=== PATIENT | female | born 1950 | race Caucasian/White ===

== ENCOUNTER 2016-12-02 22:59 | Inpatient (IN) | payer MEDICARE, OTHER ==
[~2016-12-02] VITALS: Ht 162.6 cm; Wt 84.9 kg
[2016-12-02] MEDS ORDERED: ACETAMINOPHEN 325 MG TAB As Ordered ONE (23:46)
[2016-12-03 00:24] LABS: BASO % 0.5 % (0.0-1.0); EOS # 0.1 K/mm3 (0.0-0.50); EOS % 1.4 % (0.0-3.0); LARGE UNSTAINED CELL # 0.2 K/mm3 (0.0-0.4); LARGE UNSTAINED CELL % 3.7 % (0.0-4.0); LYMPH # 3.6 K/mm3 (1.5-4.5); LYMPH % 50.9 % (24.0-44.0); MEAN CORPUSCULAR HEMOGLOBIN 29.9 pg (27.0-33.0); MEAN CORPUSCULAR HGB CONC 32.5 g/dl (32.0-36.5); MEAN CORPUSCULAR VOLUME 92.1 fl (80.0-96.0); MONO # 0.2 K/mm3 (0.0-0.8); MONO % 3.2 % (0.0-5.0); NEUTROPHILS # 2.6 K/mm3 (1.8-7.7); NEUTROPHILS % 40.3 % (36.0-66.0); PLATELET COUNT, AUTOMATED 255 k/mm3 (150-450); RED CELL DISTRIBUTION WIDTH 12.5 % (11.5-14.5); WHITE BLOOD COUNT 6.6 K/mm3 (4.0-10.0)
[2016-12-03 00:44] LABS: ANION GAP 9 MEQ/L (8-16); BLOOD UREA NITROGEN 15 MG/DL (7-18); CALCIUM LEVEL 8.6 MG/DL (8.8-10.2); CARBON DIOXIDE LEVEL 23 MEQ/L (21-32); CHLORIDE LEVEL 106 MEQ/L (98-107); CREATININE FOR GFR 0.91 MG/DL (0.55-1.02); GLOMERULAR FILTRATION RATE > 60.0 (>45); GLUCOSE, FASTING 99 MG/DL (80-110); POTASSIUM SERUM 3.8 MEQ/L (3.5-5.1); SODIUM LEVEL 138 MEQ/L (136-145)
[2016-12-03] MEDS ORDERED: IPRATROPIUM 0.5MG/ALBUTEROL 2.5MG INH SOL UD 3ML (DUONEB)(J7620) NEB PRN (01:15)
[2016-12-03] MEDS ORDERED: ACETAMINOPHEN TAB 650MG DOSE (2X325MG) PO PRN (01:15)
[2016-12-03] MEDS ORDERED: ONDANSETRON 4MG/2ML VIAL (J2405) IV PRN (01:15)
[2016-12-03] MEDS ORDERED: RIZATRIPTAN MLT 10 MG TAB PO PRN (01:30)
[2016-12-03] MEDS ORDERED: OSELTAMIVIR PHOSPHATE 75 MG CAP (TAMIFLU) As Ordered ONE (01:52)
[2016-12-03] MEDS ORDERED: ZOLP5TAB PO (02:03)
[2016-12-03] MEDS ORDERED: ACYC800T PO (02:03)
[2016-12-03] MEDS ORDERED: EVIS1TAB PO (02:03)
[2016-12-03] MEDS ORDERED: BACL10TA2 PO (02:03)
[2016-12-03] MEDS ORDERED: MAXA10TA14 PO (02:03)
[2016-12-03] MEDS ORDERED: HYDR-3713 PO (02:03)
[2016-12-03] MEDS ORDERED: SYNT125T PO (02:03)
[2016-12-03] MEDS ORDERED: PROA1AER INH (02:03)
[2016-12-03] MEDS ORDERED: SIMV10TA2 PO (02:03)
[2016-12-03] MEDS ORDERED: IMBR1CAP PO (02:03)
[2016-12-03] MEDS ORDERED: MUCI600T34 PO (02:03)
[2016-12-03] MEDS ORDERED: HYDR200T3 PO (02:03)
--- NOTE | 2016-12-03 02:29 | EDDOCDS ---
Physician Documentation [facility] Name: Shanelle Vanegas Age: 66 yrs Sex: Female : 1950 Arrival Date: 12/02/2016 Time: 22:59 Bed 15 Private MD: NO PRIMARY PHYSICIAN, . Disposition: 12/03/16 01:12 Hospitalization ordered by Lam Rahman for Inpatient Admission. Preliminary diagnosis is Influenza due to other identified influenza virus with other respiratory manifestations. - Bed requested for 4 Cando. - Status is Inpatient Admission. js15 - Condition is Stable. - Problem is an acute exacerbation. - Symptoms have improved. Historical: - Allergies: SULFA (SULFONAMIDES); can't take any inflammatory medicine; - Home Meds: 1. famciclovir 500 mg Oral tab as needed 2. acyclovir 800 mg Oral tab 1 tab twice daily 3. baclofen 10 mg Oral tab 1 tab daily 4. Imbruvica 140 mg oral cap 3 caps once daily 5. hydroxychloroquine 200 mg oral tab 1 tab once daily 6. hydrocodone-acetaminophen 5-325 mg Oral tab 2 tabs every 6 hours 7. ProAir HFA 90 mcg/actuation inhalation HFAA 2 puffs every 4-6 hours 8. Evista 60 mg Oral tab 1 tab once daily 9. Maxalt-SAP TECHNICAL ARCHITECT 10 mg oral TbDL 1 tab as needed 10. simvastatin 10 mg Oral tab 1 tab once daily 11. Synthroid 125 mcg Oral tab 1 tab once daily 12. zolpidem 5 mg Oral tab 1 tab once daily - PMHx: Hypercholesterolemia; Migraine Headaches; Hypothyroidism; Leukemia; lymphoma; - PSHx: Hysterectomy; Lumpectomy- Right; Thyroid Surgery; parathyroid surgery; right foot surgery; - Social history: Smoking status: Patient states former smoker of tobacco. No barriers to communication noted, The patient speaks fluent Wolof. - Family history: Not pertinent. - : The pt / caregiver states he / she is not on anticoagulants. Home medication list is obtained from the patient. - Exposure Risk Screening:: None identified. Vital Signs: 12/02 23:04 BP 152 / 81; Pulse 103; Resp 18 S; Temp 101.1(O); Pulse Ox 98% on R/A; Weight 83.91 kg gr2 / 184.99 lbs (R); Height 5 ft. 4 in. (162.56 cm) (R); Pain 4/10; 12/03 00:32 Pulse 98 MON; Pulse Ox 97% ; js15 00:33 BP 166 / 74 (auto/); 15 00:47 Pulse 90 MON; Pulse Ox 96% ; js15 00:48 BP 192 / 74 (auto/); 15 01:02 Pulse 92 MON; Pulse Ox 96% ; js15 01:03 BP 163 / 90 (auto/); js15 01:18 BP 162 / 74 (auto/); js15 01:18 Pulse 88 MON; Pulse Ox 96% ; js15 01:37 BP 132 / 71 (auto/); 15 01:38 Pulse 96 MON; Pulse Ox 96% ; 01:47 Pulse 88 MON; Pulse Ox 97% ; 01:48 BP 129 / 76 (auto/); 01:53 Pulse 88 MON; Pulse Ox 96% ; 15 01:54 BP 123 / 63; Pulse 86 MON; Resp 20; Temp 100.4(O); Pulse Ox 97% on R/A; Pain 0/10; 01:54 BP 123 / 63 (auto/); 02:03 BP 120 / 62 (auto/); 02:03 Pulse 84 MON; Pulse Ox 96% ; 02:18 BP 130 / 67 (auto/); 02:19 Pulse 86 MON; Pulse Ox 96% ; js15 12/02 23:04 Body Mass Index 31.75 (83.91 kg, 162.56 cm) gr2 MDM: 12/02 23:38 -Blood Culture (Adults Only), peripheral from different site, or from device/port/PICC mm11 etc. if present ordered. 23:38 Director Patient/Pulse Ox/q 15 min VS ordered. mm11 23:38 IV Saline Lock ordered. mm11 23:38 Rhythm Strip to chart ordered. mm11 23:38 Acetaminophen Tablet 650 mg PO once ordered. mm11 23:38 NS 0.9% 1000 ml IV at bolus once ordered. mm11 23:39 Basic Metabolic Profile Ordered. EDMS 23:39 CBC with Diff Ordered. EDMS 23:39 Lactic Acid (Cm tube on ice) Ordered. EDMS 23:39 -Blood Culture Ordered. EDMS 23:39 -Influenza A&B Rapid Antigen - Nose Ordered. EDMS 23:40 Chest, 2 View (pa\E\lat) Ordered. EDMS 23:40 ECG WITH READING ER PHYS+CARDIAG ordered. EDMS 23:40 -Blood Culture (Adults Only), peripheral from different site, or from device/port/PICC ml3 etc. if present complete. 23:41 BLOOD CULTURES Ordered. EDMS 02/18 00:42 CBC with Diff Reviewed. mm11 00:54 Basic Metabolic Profile Reviewed. mm11 00:54 -Influenza A&B Rapid Antigen - Nose Reviewed. mm11 00:54 Lactic Acid (Cm tube on ice) Reviewed. mm11 00:57 Oseltamivir 75 mg PO once ordered. mm11 01:12 BED REQUEST+ADM ordered. EDMS 01:13 Admission / Observation Status ordered. EDMS 01:13 REGULAR DIET ordered. EDMS 01:41 Financial registration complete. hs2 02:10 [facility] Payment Agreement was scanned into [employer] and attached to record. [facility] Administered Medications: 00:17 Drug: Acetaminophen 650 mg [acetaminophen 325 mg tablet (2 tabs)] Route: PO; js15 01:57 Follow up: Response: Temperature is decreased js15 00:17 Drug: NS 0.9% 1000 ml [sodium chloride 0.9 % intravenous solution] Route: IV; Rate: js15 bolus; Site: left hand; 01:55 Drug: Oseltamivir 75 mg [oseltamivir 75 mg capsule (1 caps)] Route: PO; js15 Signatures: Dispatcher [employer] Allyson Rondon RN RN [facility] Elizabeth Johnston, [employer] ml3 Bhupinder Joshi, DO mm11 Penelope Valdivia [facility] Naya MejiaRN RN js15 Denisa Harry, Reg Reg hs2 The chart was reviewed and I authenticate all verbal orders and agree with the evaluation and treatment provided.Attachments: 02:10 [facility] Payment Agreement [facility] MTDD
--- NOTE | 2016-12-03 02:29 | EDDOCDS ---
Nurse's Notes [facility] Name: Shanelle Vanegas Age: 66 yrs Sex: Female : 1950 Arrival Date: 12/02/2016 Time: 22:59 Bed 15 Private MD: NO PRIMARY PHYSICIAN, . Diagnosis: Influenza due to other identified influenza virus with other respiratory manifestations Presentation: 12/02 23:13 Presenting complaint: Patient states: Sick for last 5 days--coughing, chills, mcp congestion, short of breath and weak going up stairs, fever last night. Is undergoing chemo treatments now for leukemia and lymphoma. Adult Sepsis Screening: The patient does not have new or worsening altered mentation. Patient's respiratory rate is less than 22. Systolic blood pressure is greater than 100. Patient has a qSOFA score of 0- Negative Sepsis Screen. Suicide/Homicide risk assessment- the patient denies having any suicidal and/or homicidal ideations and does not present with any other emotional, behavioral or mental health complaints. Status: Patient is not a nursing services manager or dependent. Transition of care: patient was not received from another setting of care. 23:13 Acuity: LANDON Level 3 [facility] 23:13 Method Of Arrival: Walkin/Carried/Asstd [facility] Triage Assessment: 23:21 General: Appears ill, Behavior is cooperative. Pain: Denies pain. Neurological: No mcp deficits noted. EENT: Reports nasal congestion. Respiratory: Airway is patent Respiratory effort is even, labored, Reports shortness of breath at rest cough that is persistent. Derm: Skin is pink, warm & dry. Historical: - Allergies: SULFA (SULFONAMIDES); can't take any inflammatory medicine; - Home Meds: 1. famciclovir 500 mg Oral tab as needed 2. acyclovir 800 mg Oral tab 1 tab twice daily 3. baclofen 10 mg Oral tab 1 tab daily 4. Imbruvica 140 mg oral cap 3 caps once daily 5. hydroxychloroquine 200 mg oral tab 1 tab once daily 6. hydrocodone-acetaminophen 5-325 mg Oral tab 2 tabs every 6 hours 7. ProAir HFA 90 mcg/actuation inhalation HFAA 2 puffs every 4-6 hours 8. Evista 60 mg Oral tab 1 tab once daily 9. Maxalt-YARN TESTER 10 mg oral TbDL 1 tab as needed 10. simvastatin 10 mg Oral tab 1 tab once daily 11. Synthroid 125 mcg Oral tab 1 tab once daily 12. zolpidem 5 mg Oral tab 1 tab once daily - PMHx: Hypercholesterolemia; Migraine Headaches; Hypothyroidism; Leukemia; lymphoma; - PSHx: Hysterectomy; Lumpectomy- Right; Thyroid Surgery; parathyroid surgery; right foot surgery; - Social history: Smoking status: Patient states former smoker of tobacco. No barriers to communication noted, The patient speaks fluent Mauritanian. - Family history: Not pertinent. - : The pt / caregiver states he / she is not on anticoagulants. Home medication list is obtained from the patient. - Exposure Risk Screening:: None identified. Screenin/18 00:30 Screening information is obtained from the patient. Fall risk: No risks identified. js15 Assistance ADL's: requires no assistance with activities of daily living. Abuse/DV Screen: The patient / caregiver reports he/she is: not in a situation that causes fear, pain or injury. Nutritional screening: No deficits noted. Advance Directives: There is no active DNR order. home support is adequate. Assessment: 00:30 General: Appears in no apparent distress, uncomfortable, Behavior is appropriate for js15 age, cooperative. Pain: Denies pain. Neurological: Level of Consciousness is awake, alert, obeys commands, Oriented to person, place, time. Cardiovascular: Capillary refill < 3 seconds Heart tones S1 S2 present Rhythm is regular. Respiratory: Airway is patent Respiratory effort is even, unlabored, Respiratory pattern is regular, symmetrical, Breath sounds with wheezes bilaterally. Derm: Skin is pink, warm & dry. 01:30 Reassessment: Patient appears in no apparent distress at this time. Pt resting on js15 stretcher, respirations even and unlabored; skin pink, warm, dry. 02:24 Reassessment: Patient appears in no apparent distress at this time. Patient denies pain js15 at this time. Pt awake and alert on stretcher, using cell phone; respirations even and unlabored with intermittent cough; skin pink, warm, dry. Vital Signs: 12/02 23:04 BP 152 / 81; Pulse 103; Resp 18 S; Temp 101.1(O); Pulse Ox 98% on R/A; Weight 83.91 kg gr2 (R); Height 5 ft. 4 in. (162.56 cm) (R); Pain 4/10; 18 00:32 Pulse 98 MON; Pulse Ox 97% ; js15 00:33 BP 166 / 74 (auto/); js15 00:47 Pulse 90 MON; Pulse Ox 96% ; js15 00:48 BP 192 / 74 (auto/); js15 01:02 Pulse 92 MON; Pulse Ox 96% ; js15 01:03 BP 163 / 90 (auto/); js15 01:18 BP 162 / 74 (auto/); js15 01:18 Pulse 88 MON; Pulse Ox 96% ; js15 01:37 BP 132 / 71 (auto/); js15 01:38 Pulse 96 MON; Pulse Ox 96% ; js15 01:47 Pulse 88 MON; Pulse Ox 97% ; js15 01:48 BP 129 / 76 (auto/); js15 01:53 Pulse 88 MON; Pulse Ox 96% ; js15 01:54 BP 123 / 63; Pulse 86 MON; Resp 20; Temp 100.4(O); Pulse Ox 97% on R/A; Pain 0/10; js15 01:54 BP 123 / 63 (auto/); js15 02:03 BP 120 / 62 (auto/); js15 02:03 Pulse 84 MON; Pulse Ox 96% ; js15 02:18 BP 130 / 67 (auto/); js15 02:19 Pulse 86 MON; Pulse Ox 96% ; js15 12/02 23:04 Body Mass Index 31.75 (83.91 kg, 162.56 cm) gr2 Vitals: 12/02 23:04 Log In Time: December 02, 2016 at 23:04. gr2 ED Course: 23:03 Patient visited by Lianna Jay. gr2 23:03 Patient moved to Waiting gr2 23:04 NO PRIMARY PHYSICIAN, . is Private Physician. gr2 23:06 Patient visited by Lianna Jay. gr2 23:06 Patient moved to Pre RCE gr2 23:14 Triage Initiated mcp 23:22 Patient visited by Allyson Basilio RN. [facility] 23:23 Patient moved to 15 mcp 23:24 Bhupinder Joshi DO is Attending Physician. mm11 23:24 Patient visited by Bhupinder Joshi DO. mm11 23:37 Patient visited by Bhupinder Joshi DO. mm11 12/03 00:15 Inserted saline lock: 20 gauge in left hand The patient tolerated the procedure well. 00:17 Lactic Acid (Cm tube on ice) Sent. 00:17 -Influenza A&B Rapid Antigen - Nose Sent. 00:17 -Blood Culture Sent. 00:17 Basic Metabolic Profile Sent. 00:17 CBC with Diff Sent. 00:18 Patient visited by Naya Mejia RN. 00:30 The patient / caregiver is instructed regarding the plan of care and ED course. 00:39 Patient visited by Babak Dominguez PCA. v 00:39 EKG done. (by ED staff). Reviewed by Bhupinder Joshi DO. v 01:09 BLOOD CULTURES Sent. 01:12 Lam Rahman DO is Hospitalizing Provider. mm11 01:53 No procedures done that require assistance. 02:10 [facility] Payment Agreement was scanned into [employer] and attached to record. [facility] Administered Medications: 00:17 Drug: Acetaminophen 650 mg [acetaminophen 325 mg tablet (2 tabs)] Route: PO; 15 01:57 Follow up: Response: Temperature is decreased 00:17 Drug: NS 0.9% 1000 ml [sodium chloride 0.9 % intravenous solution] Route: IV; Rate: 15 bolus; Site: left hand; 01:55 Drug: Oseltamivir 75 mg [oseltamivir 75 mg capsule (1 caps)] Route: PO; 15 Order Results: Lab Order: Basic Metabolic Profile; SPEC'M 12/03/16 00:13 Test: GLUCOSE, FASTING; Value: 99; Range: 80-110; Units: MG/DL; Status: F Test: BLOOD UREA NITROGEN; Value: 15; Range: 7-18; Units: MG/DL; Status: F Test: CREATININE FOR GFR; Value: 0.91; Range: 0.55-1.02; Units: MG/DL; Status: F Test: GLOMERULAR FILTRATION RATE; Value: > 60.0; Range: >45; Status: F Test: SODIUM LEVEL; Value: 138; Range: 136-145; Units: MEQ/L; Status: F Test: POTASSIUM SERUM; Value: 3.8; Range: 3.5-5.1; Units: MEQ/L; Status: F Test: CHLORIDE LEVEL; Value: 106; Range: 98-107; Units: MEQ/L; Status: F Test: CARBON DIOXIDE LEVEL; Value: 23; Range: 21-32; Units: MEQ/L; Status: F Test: ANION GAP; Value: 9; Range: 8-16; Units: MEQ/L; Status: F Test: CALCIUM LEVEL; Value: 8.6; Range: 8.8-10.2; Abnormal: Below low normal; Units: MG/DL; Status: F Test Note: ; Units are mL/min/1.73 m2 Chronic Kidney Disease Staging per NKF: Stage I & II GFR >=60 Normal to Mildly Decreased Stage III GFR 30-59 Moderately Decreased Stage IV GFR 15-29 Severely Decreased Stage V GFR <15 Very Little GFR Left ESRD GFR <15 on DIVING COACH Lab Order: CBC with Diff; SPEC'M 12/03/16 00:13 Test: WHITE BLOOD COUNT; Value: 6.6; Range: 4.0-10.0; Units: K/mm3; Status: F Test: RED BLOOD COUNT; Value: 3.91; Range: 4.00-5.40; Abnormal: Below low normal; Units: M/mm3; Status: F Test: HEMOGLOBIN; Value: 11.7; Range: 12.0-16.0; Abnormal: Below low normal; Units: g/dl; Status: F Test: HEMATOCRIT; Value: 36.0; Range: 36.0-47.0; Units: %; Status: F Test: MEAN CORPUSCULAR VOLUME; Value: 92.1; Range: 80.0-96.0; Units: fl; Status: F Test: MEAN CORPUSCULAR HEMOGLOBIN; Value: 29.9; Range: 27.0-33.0; Units: pg; Status: F Test: MEAN CORPUSCULAR HGB CONC; Value: 32.5; Range: 32.0-36.5; Units: g/dl; Status: F Test: RED CELL DISTRIBUTION WIDTH; Value: 12.5; Range: 11.5-14.5; Units: %; Status: F Test: PLATELET COUNT, AUTOMATED; Value: 255; Range: 150-450; Units: k/mm3; Status: F Test: NEUTROPHILS %; Value: 40.3; Range: 36.0-66.0; Units: %; Status: F Test: LYMPH %; Value: 50.9; Range: 24.0-44.0; Abnormal: Above high normal; Units: %; Status: F Test: MONO %; Value: 3.2; Range: 0.0-5.0; Units: %; Status: F Test: EOS %; Value: 1.4; Range: 0.0-3.0; Units: %; Status: F Test: BASO %; Value: 0.5; Range: 0.0-1.0; Units: %; Status: F Test: LARGE UNSTAINED CELL %; Value: 3.7; Range: 0.0-4.0; Units: %; Status: F Test: NEUTROPHILS #; Value: 2.6; Range: 1.8-7.7; Units: K/mm3; Status: F Test: LYMPH #; Value: 3.6; Range: 1.5-4.5; Units: K/mm3; Status: F Test: MONO #; Value: 0.2; Range: 0.0-0.8; Units: K/mm3; Status: F Test: EOS #; Value: 0.1; Range: 0.0-0.50; Units: K/mm3; Status: F Test: BASO #; Value: 0.0; Range: 0.0-0.2; Units: K/mm3; Status: F Test: LARGE UNSTAINED CELL #; Value: 0.2; Range: 0.0-0.4; Units: K/mm3; Status: F Lab Order: -Influenza A&B Rapid Antigen - Nose; SPEC'M 12/03/16 00:14 Test: INFLUENZA A RAPID SCR by ICA; Value: INFLUENZA A RESULTS NEGATIVE; Status: F Test: INFLUENZA A RAPID SCR by ICA; Value: Comments:; Status: F Test: INFLUENZA B RAPID SCR by ICA; Value: INFLUENZA B RESULTS POSITIVE; Abnormal: Abnormal; Status: F Test Note: ; The Influenza test is a direct rapid immunoassay for the qualitative detection of Influenza viral antigen. Cell culture (Viral Culture) testing should be considered to confirm NEGATIVE results and to assist in detecting other viruses that can provide similar clinical symptoms. Please contact the lab within 24 hours ([phone]) if confirmatory testing is desired. Lab Order: Lactic Acid (Cm tube on ice); SPEC'M 12/03/16 00:14 Test: LACTIC ACID SEPSIS PROTOCOL; Value: 1.0; Range: 0.4-2.0; Units: MMOL/L; Status: F Outcome: 01:12 Decision to Hospitalize by Provider. mm11 01:53 Discharge Assessment: Patient awake, alert and oriented x 3. No cognitive and/or [facility] functional deficits noted. Patient verbalized understanding of disposition instructions. patient administered narcotics - no. The following High Risk Discharge criteria are identified: None. Admitted to Med/Surg accompanied by tech, via stretcher, with chart, Other pt wearing mask during transport. Condition: unchanged. No special radiology studies were completed. Property :Personal belongings accompany Pt. 02:28 Patient left the ED. [facility] Signatures: Allyson Basilio, RN [facility] Bhupinder Joshi DO DO mm11 Lianna Jay gr2 Penelope Valdivia Julia, RN RN 15 Babak Dominguez, AUDITING CONTROL CLERK AUDITING CONTROL CLERK jmv Corrections: (The following items were deleted from the chart) 02:27 01:53 The following High Risk Discharge criteria are identified: None. Admitted to [facility] Med/Surg accompanied by tech, via stretcher, with chart, js15 [facility]
[2016-12-03 02:40] VITALS: BP 136/69
[2016-12-03] MEDS: SIMVASTATIN 10 MG TAB PO SCH ×2 (03:32→21:26)
[2016-12-03] MEDS: BACLOFEN 10 MG TAB PO SCH ×2 (03:32→21:26)
[2016-12-03] MEDS ORDERED: methylPREDNISolone INJ 125 MG/2 ML VIAL (J2930) IV SCH (04:00)
[2016-12-03] MEDS: LEVOTHYROXINE 0.125 MG TAB (125 MCG) PO SCH (05:40)
[2016-12-03 06:00] VITALS: BP 119/65
--- NOTE | 2016-12-03 07:03 | HPE ---
DATE OF ADMISSION: 12/03/2016 PRIMARY CARE PROVIDER: In [place]. ONCOLGIST: In [place]. CHIEF COMPLAINT: Myalgia, cough and chills. HISTORY OF PRESENT ILLNESS: Ms. Vanegas is a pleasant 66-year-old female who has traveled here recently from [place] to visit her family. Her mother is currently hospitalized due to generalized weakness and decubitus ulcers. At any rate, she has had 4-5 days of coughing, chills, subjective fevers, chest congestion, shortness of breath, and dyspnea on exertion. She is currently on chemo for her underlying lymphoma and chronic lymphocytic leukemia (CLL). She denies any sick contacts. However, she did test positive for influenza B by the ER physician. Due to her generalized weakness and symptoms, as well as her chemotherapy we did have a discussion regarding observing her overnight and starting her on appropriate medications. She does not appear to be acutely hypoxic, however, she does have some generalized weakness, myalgia and elevated temperature. PAST MEDICAL HISTORY: 1. CLL. 2. Lymphoma. 3. Hyperlipidemia. 4. Hypothyroidism. 5. Migraines. PAST SURGICAL HISTORY: 1. Hysterectomy. 2. Lumpectomy right breast. 3. Thyroid surgery. 4. Parathyroid surgery. 5. Right foot surgery. SOCIAL HISTORY: The patient denies tobacco use or alcohol use. She denies any sick contacts, but recently traveled here from [place] approximately a week ago. FAMILY HISTORY: Noncontributory. ALLERGIES: - SULFA DRUGS HOME MEDICATIONS: - famciclovir 500 mg as needed - acyclovir 800 mg twice a day - baclofen 10 mg daily - Imbruvica 140 mg - hydroxychloroquine 200 mg daily - Lortab 5/325 1 tablet every 6 hours - ProAir HFA inhaler as directed - Evista 60 mg daily - Maxalt-BASTING MACHINE OPERATOR 10 mg tablet as directed - simvastatin 10 mg daily - Synthroid 125 mcg daily - Zolpidem 5 mg once daily REVIEW OF SYSTEMS: Constitutional: She has had subjective fevers, chills. No rigors, but positive myalgias and generalized weakness for the last 4-5 days. HEENT: She denies headache, lightheaded, dizziness. No blurry vision, double vision or tinnitus. No difficulty with speech or swallowing. Pulmonary: Intermittent productive sputum which is clear to yellowish. No hemoptysis. She has had increased wheeze. She does have an underlying history of asthma. Cardiovascular: No substernal chest pain. No paroxysmal nocturnal dyspnea (PND), orthopnea or lower extremity edema. GI: No nausea, vomiting, or diarrhea. Bowel movements regular. She denies any hematochezia or melena. : No dysuria, frequency or hematuria. Musculoskeletal: Positive for myalgia vaguely in the upper and lower extremities, but no bone, muscle or joint pain otherwise. Neurologic: No for paresthesias or paralysis. She does have a history of migraines. Lymphatics: No lumps, bumps, swelling in the neck, axilla or groin, but she does have a positive history of lymphoma she is actively being treated for. Endocrine: Negative for diabetes. Positive for thyroid disorder. Hematology: No bleeding or bruising disorder. No prior history of venous thromboembolism. Oncology: Positive for lymphoma and chronic lymphocytic leukemia. Psychiatric: Negative for depression. No suicidal ideation. No audiovisual hallucinations. 10-point review of systems completed, pertinent positives are listed. PHYSICAL EXAMINATION: Temperature is 101.1, respiratory rate 18, pulse 103, blood pressure (BP) 152/81, SPO2 is 98% on room air. General: The patient appears to be in no acute distress. She is alert and oriented, pleasant talk to. HEENT: Head is atraumatic, normocephalic. She does have some clear rhinorrhea. Throat clear. Neck: Supple. Lungs: Intermittent expiratory wheeze throughout all lung maldonado. Heart: Regular rate and rhythm. Abdomen: Soft. Extremities: No edema or calf tenderness. Cranial nerves II-XII grossly intact. LABORATORY DATA: White count 6.6, hemoglobin 11.7, platelets 255,000. Sodium 138, potassium 3.8, chloride 106, bicarb 23, anion gap 9, BUN is 15, creatinine 0.91, glucose is 99, lactic acid 1.0, calcium 8.6. Influenza A and B - influenza A is negative and influenza B is positive. Blood cultures pending. Chest x-ray with clear lung maldonado. No acute cardiopulmonary processes noted; however, on closer inspection she may have a little bit of a patchy infiltrate noted in the right lower lung field towards the base of the lung. IMPRESSION: Ms. Vanegas is a pleasant 66-year-old female visiting here from [place] with history of CLL and lymphoma with significant respiratory issues, generalized weakness and myalgia, testing positive for influenza B. Due to her underlying history of cancer and on current chemotherapy medications, I would like to observe her overnight and start her on appropriate medications and continue with some supportive measures. PROBLEM LIST: 1. Community-acquired pneumonia, likely secondary to influenza. 2. Influenza B. 3. CLL. 4. Lymphoma. 5. Asthma. 6. Hyperlipidemia. 7. Hypothyroidism. 8. History of migraines. 9. Chronic back pain. PLAN: The patient will be admitted under observation per Dr. Kate. Will start her on Tamiflu. Will cover her as well for secondary bacterial infection and start her on by mouth Zithromax. She appears to be doing well otherwise. Will repeat labs in the morning. She did receive a 1000 liters of normal saline. Her pressure has been fine. She does not demonstrate any signs of lactic acidosis or sepsis currently. Would like to watch her through the night since she is on ongoing chemotherapy for her lymphoma and CLL. Will continue her home medications. Deep vein thrombosis (DVT) prophylaxis with Lovenox. DISPOSITION: Anticipate home discharge in the next 24-48 hours.
[2016-12-03] MEDS: IPRATROPIUM 0.5MG/ALBUTEROL 2.5MG INH SOL UD 3ML (DUONEB)(J7620) NEB SCH ×2 (07:36→15:46)
--- NOTE | 2016-12-03 08:14 | REP ---
Clinical: Cough. Technique: PA and lateral. Comparison: 07/26/2011. Findings: Mediastinum and cardiac silhouette are normal. Right basilar infiltrate/atelectasis cannot be excluded. No effusion. No pneumothorax. Skeletal structures intact. Impression: Cannot exclude trace right basilar atelectasis. Signed by Marino Ledbetter MD 12/03/2016 08:06 A
[2016-12-03] MEDS: RALOXIFENE HCL (EVISTA) 60 MG TAB PO SCH (09:00)
[2016-12-03] MEDS: DOCUSATE SODIUM 100 MG CAP PO SCH ×2 (09:00→21:26)
[2016-12-03] MEDS: OSELTAMIVIR PHOSPHATE 75 MG CAP (TAMIFLU) PO SCH ×2 (09:00→21:48)
[2016-12-03] MEDS: IMBRUVICA 140 MG PO SCH (09:01)
[2016-12-03] MEDS: ENOXAPARIN 40 MG/0.4 ML SYRINGE (J1650) SC SCH (09:01)
[2016-12-03] MEDS: AZITHROMYCIN 250 MG TAB PO SCH (09:01)
[2016-12-03] MEDS: HYDROXYCHLOROQUINE 200 MG TAB PO SCH ×2 (10:53→21:26)
[2016-12-03] MEDS: NORCO, ANEXSIA 5/325MG TABLET (HYDROcodone/ACETAMINOPHEN) PO PRN ×3 (10:54→21:49)
[2016-12-03 14:00] VITALS: BP 139/79
--- NOTE | 2016-12-03 19:38 | ECGEPIP ---
Stationary ECG Study [facility] - ED Test Date: 2016-12-03 Pat Name: JENNIFER MOLINA Department: Room: [place] [address] Gender: F State Manager: dave : 1950 Requested By: SARAH Light Order Number: [id number] Reading MD: Samira Lubin Measurements Intervals [place] Rate: 97 P: 40 SC: 170 QRS: 24 QRSD: 88 T: 66 QT: 312 QTc: 397 Interpretive Statements SINUS RHYTHM WITH FREQUENT VENTRICULAR PREMATURE COMPLEXES NONSPECIFIC T-WAVE ABNORMALITY ABNORMAL RHYTHM ECG NO PRIOR FOR COMPARISON Electronically Signed On 12-03-2016 19:37:30 EST by Samira Lubin
[2016-12-03] MEDS: predniSONE 20 MG TAB PO SCH (21:26)
[2016-12-03] MEDS: zolPIDEM TARTRATE 5 MG TAB PO SCH (21:48)
[2016-12-03 22:00] VITALS: BP 125/64
[2016-12-04] MEDS: IPRATROPIUM 0.5MG/ALBUTEROL 2.5MG INH SOL UD 3ML (DUONEB)(J7620) NEB SCH ×4 (00:18→23:49)
[2016-12-04 06:00] VITALS: BP 103/63
[2016-12-04 06:02] LABS: MEAN CORPUSCULAR HEMOGLOBIN 30.2 pg (27.0-33.0); MEAN CORPUSCULAR HGB CONC 32.4 g/dl (32.0-36.5); MEAN CORPUSCULAR VOLUME 93.3 fl (80.0-96.0); RED CELL DISTRIBUTION WIDTH 12.6 % (11.5-14.5); WHITE BLOOD COUNT 9.4 K/mm3 (4.0-10.0)
[2016-12-04 06:18] LABS: ANION GAP 8 MEQ/L (8-16); BLOOD UREA NITROGEN 16 MG/DL (7-18); CALCIUM LEVEL 9.3 MG/DL (8.8-10.2); CARBON DIOXIDE LEVEL 25 MEQ/L (21-32); CHLORIDE LEVEL 107 MEQ/L (98-107); CREATININE FOR GFR 0.81 MG/DL (0.55-1.02); GLOMERULAR FILTRATION RATE > 60.0 (>45); GLUCOSE, FASTING 120 MG/DL (80-110); POTASSIUM SERUM 4.6 MEQ/L (3.5-5.1); SODIUM LEVEL 140 MEQ/L (136-145)
[2016-12-04] MEDS: LEVOTHYROXINE 0.125 MG TAB (125 MCG) PO SCH (06:21)
[2016-12-04] MEDS: CALCIUM CARBONATE 500 MG CHEW U/D PO PRN ×2 (06:22→20:56)
[2016-12-04] MEDS: ENOXAPARIN 40 MG/0.4 ML SYRINGE (J1650) SC SCH (09:00)
[2016-12-04] MEDS: IMBRUVICA 140 MG PO SCH (09:03)
[2016-12-04] MEDS: OSELTAMIVIR PHOSPHATE 75 MG CAP (TAMIFLU) PO SCH ×2 (09:04→20:57)
[2016-12-04] MEDS: AZITHROMYCIN 250 MG TAB PO SCH (09:04)
[2016-12-04] MEDS: predniSONE 20 MG TAB PO SCH (09:04)
[2016-12-04] MEDS: HYDROXYCHLOROQUINE 200 MG TAB PO SCH ×2 (09:04→21:00)
[2016-12-04] MEDS: DOCUSATE SODIUM 100 MG CAP PO SCH ×2 (09:04→20:57)
[2016-12-04] MEDS: NORCO, ANEXSIA 5/325MG TABLET (HYDROcodone/ACETAMINOPHEN) PO PRN ×2 (09:05→18:55)
[2016-12-04] MEDS: RALOXIFENE HCL (EVISTA) 60 MG TAB PO SCH (09:30)
--- NOTE | 2016-12-04 10:58 | IPN ---
DATE: 12/03/2016 The patient is feeling better this morning. She has no complaints of chest pain. She is still short of breath and having cough. Temperature is 97.4, pulse 77, respiratory rate 18, blood pressure 119/65, 94% on room air. Input and output notable for a negative fluid balance of -985. She is awake and appropriately interactive, pleasantly conversant. Breathing is symmetrical. No accessory muscle use. Speaking in complete sentences. Occasional polyphonic wheeze. Heart is distant sounding. Normal S1, S2. Abdomen is soft, doughy, nontender. No significant lower extremity edema. LABORATORY DATA: White count from this morning is 6.6, hemoglobin 11.7. Lactic acid was 1. ASSESSMENT: This is a 66-year-old with influenza B and chronic lymphocytic leukemia (CLL). PLAN: 1. The patient is being treated for community-acquired pneumonia thought to be secondary to influenza and is on Tamiflu. She was also started on Zithromax for atypical-type pneumonia. 2. The patient has chronic lymphocytic leukemia. She is continued on her Plaquenil and her Imbruvica. 3. The patient has reactive airway disease. She has been given steroids, the dose of which can probably be decreased at this point. Hopefully, we will be able to discharge her tomorrow.
--- NOTE | 2016-12-04 11:05 | REP ---
Clinical: Fever and chills . Comparison: 12/02/2016 . Technique: PA and lateral. Findings: The mediastinum and cardiac silhouette are normal. The lung maldonado are clear and without acute consolidation, effusion, or pneumothorax. The skeletal structures are intact and normal. Impression: 1. No acute cardiopulmonary process. Signed by Marino Ledbetter MD 12/04/2016 10:56 A
[2016-12-04] MEDS: cefTRIAXone SOD 2 GM in D5W MINI-BAG PLUS 50 ML IV SCH (11:26)
[2016-12-04 14:00] VITALS: BP 121/65
[2016-12-04] MEDS: ONDANSETRON 4 MG ORAL DISINTEGRATING TAB (S0181) SL PRN (15:46)
[2016-12-04] MEDS: SIMVASTATIN 10 MG TAB PO SCH (20:57)
[2016-12-04 22:00] VITALS: BP 117/61
[2016-12-05] MEDS: BACLOFEN 10 MG TAB PO SCH ×2 (00:03→20:15)
[2016-12-05] MEDS: zolPIDEM TARTRATE 5 MG TAB PO SCH ×2 (00:03→20:16)
[2016-12-05] MEDS: CALCIUM CARBONATE 500 MG CHEW U/D PO PRN ×3 (00:58→20:24)
--- NOTE | 2016-12-05 03:29 | EDDOCDS ---
Physician Documentation [facility] Name: Shanelle Vanegas Age: 66 yrs Sex: Female : 1950 Arrival Date: 12/02/2016 Time: 22:59 Bed 15 Private MD: NO PRIMARY PHYSICIAN, . Disposition: 12/03/16 01:12 Hospitalization ordered by Lam Rahman for Inpatient Admission. Preliminary diagnosis is Influenza due to other identified influenza virus with other respiratory manifestations. - Bed requested for 4 [place]. - Status is Inpatient Admission. js15 - Condition is Stable. - Problem is an acute exacerbation. - Symptoms have improved. Historical: - Allergies: SULFA (SULFONAMIDES); can't take any inflammatory medicine; - Home Meds: 1. famciclovir 500 mg Oral tab as needed 2. acyclovir 800 mg Oral tab 1 tab twice daily 3. baclofen 10 mg Oral tab 1 tab daily 4. Imbruvica 140 mg oral cap 3 caps once daily 5. hydroxychloroquine 200 mg oral tab 1 tab once daily 6. hydrocodone-acetaminophen 5-325 mg Oral tab 2 tabs every 6 hours 7. ProAir HFA 90 mcg/actuation inhalation HFAA 2 puffs every 4-6 hours 8. Evista 60 mg Oral tab 1 tab once daily 9. Maxalt-BALANCE SHEET ANALYST 10 mg oral TbDL 1 tab as needed 10. simvastatin 10 mg Oral tab 1 tab once daily 11. Synthroid 125 mcg Oral tab 1 tab once daily 12. zolpidem 5 mg Oral tab 1 tab once daily - PMHx: Hypercholesterolemia; Migraine Headaches; Hypothyroidism; Leukemia; lymphoma; - PSHx: Hysterectomy; Lumpectomy- Right; Thyroid Surgery; parathyroid surgery; right foot surgery; - Social history: Smoking status: Patient states former smoker of tobacco. No barriers to communication noted, The patient speaks fluent Yi. - Family history: Not pertinent. - : The pt / caregiver states he / she is not on anticoagulants. Home medication list is obtained from the patient. - Exposure Risk Screening:: None identified. Vital Signs: 12/02 23:04 BP 152 / 81; Pulse 103; Resp 18 S; Temp 101.1(O); Pulse Ox 98% on R/A; Weight 83.91 kg gr2 / 184.99 lbs (R); Height 5 ft. 4 in. (162.56 cm) (R); Pain 4/10; 12/03 00:32 Pulse 98 MON; Pulse Ox 97% ; js15 00:33 BP 166 / 74 (auto/); 15 00:47 Pulse 90 MON; Pulse Ox 96% ; js15 00:48 BP 192 / 74 (auto/); 15 01:02 Pulse 92 MON; Pulse Ox 96% ; js15 01:03 BP 163 / 90 (auto/); js15 01:18 BP 162 / 74 (auto/); js15 01:18 Pulse 88 MON; Pulse Ox 96% ; js15 01:37 BP 132 / 71 (auto/); 15 01:38 Pulse 96 MON; Pulse Ox 96% ; 01:47 Pulse 88 MON; Pulse Ox 97% ; 01:48 BP 129 / 76 (auto/); 01:53 Pulse 88 MON; Pulse Ox 96% ; 15 01:54 BP 123 / 63; Pulse 86 MON; Resp 20; Temp 100.4(O); Pulse Ox 97% on R/A; Pain 0/10; 01:54 BP 123 / 63 (auto/); 02:03 BP 120 / 62 (auto/); 02:03 Pulse 84 MON; Pulse Ox 96% ; 02:18 BP 130 / 67 (auto/); 02:19 Pulse 86 MON; Pulse Ox 96% ; js15 12/02 23:04 Body Mass Index 31.75 (83.91 kg, 162.56 cm) gr2 MDM: 12/02 23:38 -Blood Culture (Adults Only), peripheral from different site, or from device/port/PICC mm11 etc. if present ordered. 23:38 Stage Technician/Pulse Ox/q 15 min VS ordered. mm11 23:38 IV Saline Lock ordered. mm11 23:38 Rhythm Strip to chart ordered. mm11 23:38 Acetaminophen Tablet 650 mg PO once ordered. mm11 23:38 NS 0.9% 1000 ml IV at bolus once ordered. mm11 23:39 Basic Metabolic Profile Ordered. EDMS 23:39 CBC with Diff Ordered. EDMS 23:39 Lactic Acid (Cm tube on ice) Ordered. EDMS 23:39 -Blood Culture Ordered. EDMS 23:39 -Influenza A&B Rapid Antigen - Nose Ordered. EDMS 23:40 Chest, 2 View (pa\E\lat) Ordered. EDMS 23:40 ECG WITH READING ER PHYS+CARDIAG ordered. EDMS 23:40 -Blood Culture (Adults Only), peripheral from different site, or from device/port/PICC ml3 etc. if present complete. 23:41 BLOOD CULTURES Ordered. EDMS 0218 00:42 CBC with Diff Reviewed. mm11 00:54 Basic Metabolic Profile Reviewed. mm11 00:54 -Influenza A&B Rapid Antigen - Nose Reviewed. mm11 00:54 Lactic Acid (Cm tube on ice) Reviewed. mm11 00:57 Oseltamivir 75 mg PO once ordered. mm11 01:12 BED REQUEST+ADM ordered. EDMS 01:13 Admission / Observation Status ordered. EDMS 01:13 REGULAR DIET ordered. EDMS 01:41 Financial registration complete. hs2 02:10 [facility] Payment Agreement was scanned into Innov[employer] and attached to record. [facility] 09:54 T-Sheet-- Draft Copy was scanned into [employer] and attached to record. gb Administered Medications: 00:17 Drug: Acetaminophen 650 mg [acetaminophen 325 mg tablet (2 tabs)] Route: PO; js15 01:57 Follow up: Response: Temperature is decreased js15 00:17 Drug: NS 0.9% 1000 ml [sodium chloride 0.9 % intravenous solution] Route: IV; Rate: js15 bolus; Site: left hand; 01:55 Drug: Oseltamivir 75 mg [oseltamivir 75 mg capsule (1 caps)] Route: PO; js15 Signatures: Dispatcher MedHost EDCO Allyson Basilio RN CHALO [facility] Halle Elizalde, Reg Reg gb Elizabeth Johnston, [employer] Assistant Manager Unit ml3 Bhupinder Joshi, DO mm11 Penelope Valdivia [facility] Naya Mejia RN RN js15 Denisa Harry, Reg Reg hs2 The chart was reviewed and I authenticate all verbal orders and agree with the evaluation and treatment provided.Attachments: 02:10 [facility] Payment Agreement [facility] 09:54 T-Sheet-- Draft Copy gb Chart Complete MTDD
--- NOTE | 2016-12-05 03:29 | EDDOCDS ---
Nurse's Notes [facility] Name: Shanelle Vanegas Age: 66 yrs Sex: Female : 1950 Arrival Date: 12/02/2016 Time: 22:59 Bed 15 Private MD: NO PRIMARY PHYSICIAN, . Diagnosis: Influenza due to other identified influenza virus with other respiratory manifestations Presentation: 12/02 23:13 Presenting complaint: Patient states: Sick for last 5 days--coughing, chills, mcp congestion, short of breath and weak going up stairs, fever last night. Is undergoing chemo treatments now for leukemia and lymphoma. Adult Sepsis Screening: The patient does not have new or worsening altered mentation. Patient's respiratory rate is less than 22. Systolic blood pressure is greater than 100. Patient has a qSOFA score of 0- Negative Sepsis Screen. Suicide/Homicide risk assessment- the patient denies having any suicidal and/or homicidal ideations and does not present with any other emotional, behavioral or mental health complaints. Status: Patient is not a career services manager or dependent. Transition of care: patient was not received from another setting of care. 23:13 Acuity: LANDON Level 3 [facility] 23:13 Method Of Arrival: Walkin/Carried/Asstd [facility] Triage Assessment: 23:21 General: Appears ill, Behavior is cooperative. Pain: Denies pain. Neurological: No mcp deficits noted. EENT: Reports nasal congestion. Respiratory: Airway is patent Respiratory effort is even, labored, Reports shortness of breath at rest cough that is persistent. Derm: Skin is pink, warm & dry. Historical: - Allergies: SULFA (SULFONAMIDES); can't take any inflammatory medicine; - Home Meds: 1. famciclovir 500 mg Oral tab as needed 2. acyclovir 800 mg Oral tab 1 tab twice daily 3. baclofen 10 mg Oral tab 1 tab daily 4. Imbruvica 140 mg oral cap 3 caps once daily 5. hydroxychloroquine 200 mg oral tab 1 tab once daily 6. hydrocodone-acetaminophen 5-325 mg Oral tab 2 tabs every 6 hours 7. ProAir HFA 90 mcg/actuation inhalation HFAA 2 puffs every 4-6 hours 8. Evista 60 mg Oral tab 1 tab once daily 9. Maxalt-MACHINE RIVETER 10 mg oral TbDL 1 tab as needed 10. simvastatin 10 mg Oral tab 1 tab once daily 11. Synthroid 125 mcg Oral tab 1 tab once daily 12. zolpidem 5 mg Oral tab 1 tab once daily - PMHx: Hypercholesterolemia; Migraine Headaches; Hypothyroidism; Leukemia; lymphoma; - PSHx: Hysterectomy; Lumpectomy- Right; Thyroid Surgery; parathyroid surgery; right foot surgery; - Social history: Smoking status: Patient states former smoker of tobacco. No barriers to communication noted, The patient speaks fluent [place]. - Family history: Not pertinent. - : The pt / caregiver states he / she is not on anticoagulants. Home medication list is obtained from the patient. - Exposure Risk Screening:: None identified. Screenin/18 00:30 Screening information is obtained from the patient. Fall risk: No risks identified. js15 Assistance ADL's: requires no assistance with activities of daily living. Abuse/DV Screen: The patient / caregiver reports he/she is: not in a situation that causes fear, pain or injury. Nutritional screening: No deficits noted. Advance Directives: There is no active DNR order. home support is adequate. Assessment: 00:30 General: Appears in no apparent distress, uncomfortable, Behavior is appropriate for js15 age, cooperative. Pain: Denies pain. Neurological: Level of Consciousness is awake, alert, obeys commands, Oriented to person, place, time. Cardiovascular: Capillary refill < 3 seconds Heart tones S1 S2 present Rhythm is regular. Respiratory: Airway is patent Respiratory effort is even, unlabored, Respiratory pattern is regular, symmetrical, Breath sounds with wheezes bilaterally. Derm: Skin is pink, warm & dry. 01:30 Reassessment: Patient appears in no apparent distress at this time. Pt resting on js15 stretcher, respirations even and unlabored; skin pink, warm, dry. 02:24 Reassessment: Patient appears in no apparent distress at this time. Patient denies pain js15 at this time. Pt awake and alert on stretcher, using cell phone; respirations even and unlabored with intermittent cough; skin pink, warm, dry. Vital Signs: 12/02 23:04 BP 152 / 81; Pulse 103; Resp 18 S; Temp 101.1(O); Pulse Ox 98% on R/A; Weight 83.91 kg gr2 (R); Height 5 ft. 4 in. (162.56 cm) (R); Pain 4/10; 18 00:32 Pulse 98 MON; Pulse Ox 97% ; js15 00:33 BP 166 / 74 (auto/); js15 00:47 Pulse 90 MON; Pulse Ox 96% ; js15 00:48 BP 192 / 74 (auto/); js15 01:02 Pulse 92 MON; Pulse Ox 96% ; js15 01:03 BP 163 / 90 (auto/); js15 01:18 BP 162 / 74 (auto/); js15 01:18 Pulse 88 MON; Pulse Ox 96% ; js15 01:37 BP 132 / 71 (auto/); js15 01:38 Pulse 96 MON; Pulse Ox 96% ; js15 01:47 Pulse 88 MON; Pulse Ox 97% ; js15 01:48 BP 129 / 76 (auto/); js15 01:53 Pulse 88 MON; Pulse Ox 96% ; js15 01:54 BP 123 / 63; Pulse 86 MON; Resp 20; Temp 100.4(O); Pulse Ox 97% on R/A; Pain 0/10; js15 01:54 BP 123 / 63 (auto/); js15 02:03 BP 120 / 62 (auto/); js15 02:03 Pulse 84 MON; Pulse Ox 96% ; js15 02:18 BP 130 / 67 (auto/); js15 02:19 Pulse 86 MON; Pulse Ox 96% ; js15 12/02 23:04 Body Mass Index 31.75 (83.91 kg, 162.56 cm) gr2 Vitals: 12/02 23:04 Log In Time: December 02, 2016 at 23:04. gr2 ED Course: 23:03 Patient visited by Lianna Jay. gr2 23:03 Patient moved to Waiting gr2 23:04 NO PRIMARY PHYSICIAN, . is Private Physician. gr2 23:06 Patient visited by Lianna Jay. gr2 23:06 Patient moved to Pre RCE gr2 23:14 Triage Initiated mcp 23:22 Patient visited by Allyson Basilio RN. [facility] 23:23 Patient moved to 15 mcp 23:24 Bhupinder Joshi DO is Attending Physician. mm11 23:24 Patient visited by Bhupinder Joshi DO. mm11 23:37 Patient visited by Bhupinder Joshi DO. mm11 12/03 00:15 Inserted saline lock: 20 gauge in left hand The patient tolerated the procedure well. 00:17 Lactic Acid (Cm tube on ice) Sent. 00:17 -Influenza A&B Rapid Antigen - Nose Sent. 00:17 -Blood Culture Sent. 00:17 Basic Metabolic Profile Sent. 00:17 CBC with Diff Sent. 00:18 Patient visited by Naya Mejia RN. 00:30 The patient / caregiver is instructed regarding the plan of care and ED course. 00:39 Patient visited by Babak Dominguez PCA. v 00:39 EKG done. (by ED staff). Reviewed by Bhupinder Joshi DO. v 01:09 BLOOD CULTURES Sent. 01:12 Lam Rahman DO is Hospitalizing Provider. mm11 01:53 No procedures done that require assistance. 02:10 [facility] Payment Agreement was scanned into ReadWave and attached to record. [email or web address] 09:54 T-Sheet-- Draft Copy was scanned into ReadWave and attached to record. gb Administered Medications: 00:17 Drug: Acetaminophen 650 mg [acetaminophen 325 mg tablet (2 tabs)] Route: PO; js15 01:57 Follow up: Response: Temperature is decreased 00:17 Drug: NS 0.9% 1000 ml [sodium chloride 0.9 % intravenous solution] Route: IV; Rate: js15 bolus; Site: left hand; 01:55 Drug: Oseltamivir 75 mg [oseltamivir 75 mg capsule (1 caps)] Route: PO; 15 Order Results: Lab Order: Basic Metabolic Profile; SPEC'M 12/03/16 00:13 Test: GLUCOSE, FASTING; Value: 99; Range: 80-110; Units: MG/DL; Status: F Test: BLOOD UREA NITROGEN; Value: 15; Range: 7-18; Units: MG/DL; Status: F Test: CREATININE FOR GFR; Value: 0.91; Range: 0.55-1.02; Units: MG/DL; Status: F Test: GLOMERULAR FILTRATION RATE; Value: > 60.0; Range: >45; Status: F Test: SODIUM LEVEL; Value: 138; Range: 136-145; Units: MEQ/L; Status: F Test: POTASSIUM SERUM; Value: 3.8; Range: 3.5-5.1; Units: MEQ/L; Status: F Test: CHLORIDE LEVEL; Value: 106; Range: 98-107; Units: MEQ/L; Status: F Test: CARBON DIOXIDE LEVEL; Value: 23; Range: 21-32; Units: MEQ/L; Status: F Test: ANION GAP; Value: 9; Range: 8-16; Units: MEQ/L; Status: F Test: CALCIUM LEVEL; Value: 8.6; Range: 8.8-10.2; Abnormal: Below low normal; Units: MG/DL; Status: F Test Note: ; Units are mL/min/1.73 m2 Chronic Kidney Disease Staging per NKF: Stage I & II GFR >=60 Normal to Mildly Decreased Stage III GFR 30-59 Moderately Decreased Stage IV GFR 15-29 Severely Decreased Stage V GFR <15 Very Little GFR Left ESRD GFR <15 on UTILIZATION MANAGEMENT NURSE Lab Order: CBC with Diff; SPEC'M 12/03/16 00:13 Test: WHITE BLOOD COUNT; Value: 6.6; Range: 4.0-10.0; Units: K/mm3; Status: F Test: RED BLOOD COUNT; Value: 3.91; Range: 4.00-5.40; Abnormal: Below low normal; Units: M/mm3; Status: F Test: HEMOGLOBIN; Value: 11.7; Range: 12.0-16.0; Abnormal: Below low normal; Units: g/dl; Status: F Test: HEMATOCRIT; Value: 36.0; Range: 36.0-47.0; Units: %; Status: F Test: MEAN CORPUSCULAR VOLUME; Value: 92.1; Range: 80.0-96.0; Units: fl; Status: F Test: MEAN CORPUSCULAR HEMOGLOBIN; Value: 29.9; Range: 27.0-33.0; Units: pg; Status: F Test: MEAN CORPUSCULAR HGB CONC; Value: 32.5; Range: 32.0-36.5; Units: g/dl; Status: F Test: RED CELL DISTRIBUTION WIDTH; Value: 12.5; Range: 11.5-14.5; Units: %; Status: F Test: PLATELET COUNT, AUTOMATED; Value: 255; Range: 150-450; Units: k/mm3; Status: F Test: NEUTROPHILS %; Value: 40.3; Range: 36.0-66.0; Units: %; Status: F Test: LYMPH %; Value: 50.9; Range: 24.0-44.0; Abnormal: Above high normal; Units: %; Status: F Test: MONO %; Value: 3.2; Range: 0.0-5.0; Units: %; Status: F Test: EOS %; Value: 1.4; Range: 0.0-3.0; Units: %; Status: F Test: BASO %; Value: 0.5; Range: 0.0-1.0; Units: %; Status: F Test: LARGE UNSTAINED CELL %; Value: 3.7; Range: 0.0-4.0; Units: %; Status: F Test: NEUTROPHILS #; Value: 2.6; Range: 1.8-7.7; Units: K/mm3; Status: F Test: LYMPH #; Value: 3.6; Range: 1.5-4.5; Units: K/mm3; Status: F Test: MONO #; Value: 0.2; Range: 0.0-0.8; Units: K/mm3; Status: F Test: EOS #; Value: 0.1; Range: 0.0-0.50; Units: K/mm3; Status: F Test: BASO #; Value: 0.0; Range: 0.0-0.2; Units: K/mm3; Status: F Test: LARGE UNSTAINED CELL #; Value: 0.2; Range: 0.0-0.4; Units: K/mm3; Status: F Lab Order: -Influenza A&B Rapid Antigen - Nose; SPEC'M 12/03/16 00:14 Test: INFLUENZA A RAPID SCR by ICA; Value: INFLUENZA A RESULTS NEGATIVE; Status: F Test: INFLUENZA A RAPID SCR by ICA; Value: Comments:; Status: F Test: INFLUENZA B RAPID SCR by ICA; Value: INFLUENZA B RESULTS POSITIVE; Abnormal: Abnormal; Status: F Test Note: ; The Influenza test is a direct rapid immunoassay for the qualitative detection of Influenza viral antigen. Cell culture (Viral Culture) testing should be considered to confirm NEGATIVE results and to assist in detecting other viruses that can provide similar clinical symptoms. Please contact the lab within 24 hours ([phone]) if confirmatory testing is desired. Lab Order: Lactic Acid (Cm tube on ice); SPEC'M 12/03/16 00:14 Test: LACTIC ACID SEPSIS PROTOCOL; Value: 1.0; Range: 0.4-2.0; Units: MMOL/L; Status: F Outcome: 01:12 Decision to Hospitalize by Provider. mm11 01:53 Discharge Assessment: Patient awake, alert and oriented x 3. No cognitive and/or [facility] functional deficits noted. Patient verbalized understanding of disposition instructions. patient administered narcotics - no. The following High Risk Discharge criteria are identified: None. Admitted to Med/Surg accompanied by tech, via stretcher, with chart, Other pt wearing mask during transport. Condition: unchanged. No special radiology studies were completed. Property :Personal belongings accompany Pt. 02:28 Patient left the ED. 15 Signatures: Allyson Basilio, RN RN [facility] Halle Elizalde, Michael Reg Bhupinder Joshi, DO mm11 Lianna Jay gr2 Penelope Valdivia Julia, RN RN js15 Babak Dominguez, PM HEAD COOK PM HEAD COOK jmv Corrections: (The following items were deleted from the chart) 02:27 01:53 The following High Risk Discharge criteria are identified: None. Admitted to [facility] Med/Surg accompanied by tech, via stretcher, with chart, js15 Chart Complete MTDD
--- NOTE | 2016-12-05 03:29 | EDDOCDS ---
Physician Documentation [facility] Name: Shanelle Vanegas Age: 66 yrs Sex: Female : 1950 Arrival Date: 12/02/2016 Time: 22:59 Bed 15 Private MD: NO PRIMARY PHYSICIAN, . Disposition: 12/03/16 01:12 Hospitalization ordered by Lam Rahman for Inpatient Admission. Preliminary diagnosis is Influenza due to other identified influenza virus with other respiratory manifestations. - Bed requested for 4 [place]. - Status is Inpatient Admission. js15 - Condition is Stable. - Problem is an acute exacerbation. - Symptoms have improved. Historical: - Allergies: SULFA (SULFONAMIDES); can't take any inflammatory medicine; - Home Meds: 1. famciclovir 500 mg Oral tab as needed 2. acyclovir 800 mg Oral tab 1 tab twice daily 3. baclofen 10 mg Oral tab 1 tab daily 4. Imbruvica 140 mg oral cap 3 caps once daily 5. hydroxychloroquine 200 mg oral tab 1 tab once daily 6. hydrocodone-acetaminophen 5-325 mg Oral tab 2 tabs every 6 hours 7. ProAir HFA 90 mcg/actuation inhalation HFAA 2 puffs every 4-6 hours 8. Evista 60 mg Oral tab 1 tab once daily 9. Maxalt-DIRECTOR PATIENT 10 mg oral TbDL 1 tab as needed 10. simvastatin 10 mg Oral tab 1 tab once daily 11. Synthroid 125 mcg Oral tab 1 tab once daily 12. zolpidem 5 mg Oral tab 1 tab once daily - PMHx: Hypercholesterolemia; Migraine Headaches; Hypothyroidism; Leukemia; lymphoma; - PSHx: Hysterectomy; Lumpectomy- Right; Thyroid Surgery; parathyroid surgery; right foot surgery; - Social history: Smoking status: Patient states former smoker of tobacco. No barriers to communication noted, The patient speaks fluent Kiswahili. - Family history: Not pertinent. - : The pt / caregiver states he / she is not on anticoagulants. Home medication list is obtained from the patient. - Exposure Risk Screening:: None identified. Vital Signs: 12/02 23:04 BP 152 / 81; Pulse 103; Resp 18 S; Temp 101.1(O); Pulse Ox 98% on R/A; Weight 83.91 kg gr2 / 184.99 lbs (R); Height 5 ft. 4 in. (162.56 cm) (R); Pain 4/10; 12/03 00:32 Pulse 98 MON; Pulse Ox 97% ; js15 00:33 BP 166 / 74 (auto/); 15 00:47 Pulse 90 MON; Pulse Ox 96% ; js15 00:48 BP 192 / 74 (auto/); 15 01:02 Pulse 92 MON; Pulse Ox 96% ; js15 01:03 BP 163 / 90 (auto/); js15 01:18 BP 162 / 74 (auto/); js15 01:18 Pulse 88 MON; Pulse Ox 96% ; js15 01:37 BP 132 / 71 (auto/); 15 01:38 Pulse 96 MON; Pulse Ox 96% ; 01:47 Pulse 88 MON; Pulse Ox 97% ; 01:48 BP 129 / 76 (auto/); 01:53 Pulse 88 MON; Pulse Ox 96% ; 15 01:54 BP 123 / 63; Pulse 86 MON; Resp 20; Temp 100.4(O); Pulse Ox 97% on R/A; Pain 0/10; 01:54 BP 123 / 63 (auto/); 02:03 BP 120 / 62 (auto/); 02:03 Pulse 84 MON; Pulse Ox 96% ; 02:18 BP 130 / 67 (auto/); 02:19 Pulse 86 MON; Pulse Ox 96% ; js15 12/02 23:04 Body Mass Index 31.75 (83.91 kg, 162.56 cm) gr2 MDM: 12/02 23:38 -Blood Culture (Adults Only), peripheral from different site, or from device/port/PICC mm11 etc. if present ordered. 23:38 Criminal Investigator Customs/Pulse Ox/q 15 min VS ordered. mm11 23:38 IV Saline Lock ordered. mm11 23:38 Rhythm Strip to chart ordered. mm11 23:38 Acetaminophen Tablet 650 mg PO once ordered. mm11 23:38 NS 0.9% 1000 ml IV at bolus once ordered. mm11 23:39 Basic Metabolic Profile Ordered. EDMS 23:39 CBC with Diff Ordered. EDMS 23:39 Lactic Acid (Cm tube on ice) Ordered. EDMS 23:39 -Blood Culture Ordered. EDMS 23:39 -Influenza A&B Rapid Antigen - Nose Ordered. EDMS 23:40 Chest, 2 View (pa\E\lat) Ordered. EDMS 23:40 ECG WITH READING ER PHYS+CARDIAG ordered. EDMS 23:40 -Blood Culture (Adults Only), peripheral from different site, or from device/port/PICC ml3 etc. if present complete. 23:41 BLOOD CULTURES Ordered. EDMS 0218 00:42 CBC with Diff Reviewed. mm11 00:54 Basic Metabolic Profile Reviewed. mm11 00:54 -Influenza A&B Rapid Antigen - Nose Reviewed. mm11 00:54 Lactic Acid (Mc tube on ice) Reviewed. mm11 00:57 Oseltamivir 75 mg PO once ordered. mm11 01:12 BED REQUEST+ADM ordered. EDMS 01:13 Admission / Observation Status ordered. EDMS 01:13 REGULAR DIET ordered. EDMS 01:41 Financial registration complete. hs2 02:10 [facility] Payment Agreement was scanned into eventuosity and attached to record. [facility] 09:54 T-Sheet-- Draft Copy was scanned into eventuosity and attached to record. gb Administered Medications: 00:17 Drug: Acetaminophen 650 mg [acetaminophen 325 mg tablet (2 tabs)] Route: PO; js15 01:57 Follow up: Response: Temperature is decreased js15 00:17 Drug: NS 0.9% 1000 ml [sodium chloride 0.9 % intravenous solution] Route: IV; Rate: js15 bolus; Site: left hand; 01:55 Drug: Oseltamivir 75 mg [oseltamivir 75 mg capsule (1 caps)] Route: PO; js15 Signatures: Dispatcher MedHost EDMN Allyson Basilio RN CHALO [facility] Halle Elizalde, Reg Reg gb Elizabeth Johnston, Eeg Tech Unit ml3 Bhupinder Joshi, DO mm11 Penelope Valdivia [facility] Naya Mejia RN RN js15 Denisa Harry, Reg Reg hs2 The chart was reviewed and I authenticate all verbal orders and agree with the evaluation and treatment provided.Attachments: 02:10 [facility] Payment Agreement [facility] 09:54 T-Sheet-- Draft Copy gb Chart Complete MTDD
[2016-12-05 05:57] LABS: MEAN CORPUSCULAR HEMOGLOBIN 30.5 pg (27.0-33.0); MEAN CORPUSCULAR HGB CONC 32.8 g/dl (32.0-36.5); RED CELL DISTRIBUTION WIDTH 12.8 % (11.5-14.5); WHITE BLOOD COUNT 9.4 K/mm3 (4.0-10.0)
[2016-12-05 06:00] VITALS: BP 113/60
[2016-12-05 06:16] LABS: ANION GAP 6 MEQ/L (8-16); BLOOD UREA NITROGEN 18 MG/DL (7-18); CALCIUM LEVEL 9.1 MG/DL (8.8-10.2); CARBON DIOXIDE LEVEL 27 MEQ/L (21-32); CHLORIDE LEVEL 107 MEQ/L (98-107); CREATININE FOR GFR 0.85 MG/DL (0.55-1.02); GLOMERULAR FILTRATION RATE > 60.0 (>45); GLUCOSE, FASTING 79 MG/DL (80-110); POTASSIUM SERUM 3.9 MEQ/L (3.5-5.1); SODIUM LEVEL 140 MEQ/L (136-145)
[2016-12-05] MEDS: LEVOTHYROXINE 0.125 MG TAB (125 MCG) PO SCH (06:18)
[2016-12-05] MEDS: IPRATROPIUM 0.5MG/ALBUTEROL 2.5MG INH SOL UD 3ML (DUONEB)(J7620) NEB SCH ×3 (07:13→23:34)
[2016-12-05] MEDS: ENOXAPARIN 40 MG/0.4 ML SYRINGE (J1650) SC SCH (09:41)
[2016-12-05] MEDS: DOCUSATE SODIUM 100 MG CAP PO SCH ×2 (09:42→20:15)
[2016-12-05] MEDS: HYDROXYCHLOROQUINE 200 MG TAB PO SCH ×2 (09:42→20:15)
[2016-12-05] MEDS: OSELTAMIVIR PHOSPHATE 75 MG CAP (TAMIFLU) PO SCH ×2 (09:42→20:15)
[2016-12-05] MEDS: AZITHROMYCIN 250 MG TAB PO SCH (09:42)
[2016-12-05] MEDS: predniSONE 20 MG TAB PO SCH (09:42)
[2016-12-05] MEDS: RALOXIFENE HCL (EVISTA) 60 MG TAB PO SCH (09:42)
[2016-12-05] MEDS: IMBRUVICA 140 MG PO SCH (09:43)
[2016-12-05] MEDS: cefTRIAXone SOD 2 GM in D5W MINI-BAG PLUS 50 ML IV SCH (09:44)
[2016-12-05] MEDS: ONDANSETRON 4 MG ORAL DISINTEGRATING TAB (S0181) SL PRN ×2 (12:41→22:56)
[2016-12-05] MEDS ORDERED: BENZONATATE 100 MG CAP PO PRN (12:45)
[2016-12-05 14:00] VITALS: BP 123/64
--- NOTE | 2016-12-05 14:32 | IPN ---
DATE: 12/03/2016 Ms. Vanegas is not feeling as well today. She is having a tremor and chills, although she has no recorded fever. She feels weaker and tired. Temperature is 97.1, pulse 65, respiratory rate 18, blood pressure 103/63, 98% on room air. Input and output notable for a negative fluid balance of -165. One bowel movement was noted yesterday. She is awake, appropriate interactive. Appears somewhat uncomfortable but pleasant and making jokes. Mucous membranes are moist. Neck is supple. Breathing is symmetrical. I:E ratio is 1:3. No wheezes noted today. Heart is distant sounding, normal S1, S2. Not tachycardic. Abdomen is soft, doughy and nontender. White cell count 9.4, hemoglobin 11.1, platelets of 258. BUN 16, creatinine 0.81. Chest x-ray shows no infiltrate today. ASSESSMENT: This is a 66-year-old with influenza B and chronic lymphocytic leukemia. PLAN: 1. The patient is being treated for community acquired pneumonia, thought to be secondary to influenza and is on Tamiflu. I did broaden up her antibiotic therapy today to include ceftriaxone, as she is relatively immunocompromised and has not improved thus far. X-ray showed no infiltrate. I will continue to monitor her clinically in the hospital. The patient has chronic lymphocytic leukemia. Continue on Plaquenil and Imbruvica. 2. The patient has reactive airway disease. She is continued on steroids. Again, I decreased the dose today. Hopefully, we will be able to discharge her tomorrow depending on her clinical course.
[2016-12-05] MEDS: NORCO, ANEXSIA 5/325MG TABLET (HYDROcodone/ACETAMINOPHEN) PO PRN (18:02)
[2016-12-05] MEDS: SIMVASTATIN 10 MG TAB PO SCH (20:16)
[2016-12-05 22:00] VITALS: BP 127/65
[2016-12-06] MEDS: NORCO, ANEXSIA 5/325MG TABLET (HYDROcodone/ACETAMINOPHEN) PO PRN ×2 (03:48→23:05)
[2016-12-06] MEDS: LEVOTHYROXINE 0.125 MG TAB (125 MCG) PO SCH (05:33)
[2016-12-06 06:00] VITALS: BP 129/63
[2016-12-06 06:01] LABS: MEAN CORPUSCULAR HGB CONC 33.6 g/dl (32.0-36.5); MEAN CORPUSCULAR VOLUME 92.3 fl (80.0-96.0); RED CELL DISTRIBUTION WIDTH 12.6 % (11.5-14.5); WHITE BLOOD COUNT 8.6 K/mm3 (4.0-10.0)
[2016-12-06 06:23] LABS: ANION GAP 9 MEQ/L (8-16); BLOOD UREA NITROGEN 17 MG/DL (7-18); CALCIUM LEVEL 8.9 MG/DL (8.8-10.2); CARBON DIOXIDE LEVEL 26 MEQ/L (21-32); CHLORIDE LEVEL 106 MEQ/L (98-107); GLOMERULAR FILTRATION RATE > 60.0 (>45); GLUCOSE, FASTING 81 MG/DL (80-110); POTASSIUM SERUM 3.9 MEQ/L (3.5-5.1); SODIUM LEVEL 141 MEQ/L (136-145)
[2016-12-06] MEDS: IPRATROPIUM 0.5MG/ALBUTEROL 2.5MG INH SOL UD 3ML (DUONEB)(J7620) NEB SCH ×3 (07:09→23:43)
--- NOTE | 2016-12-06 08:21 | IPN ---
DATE OF VISIT: 12/05/2016 Ms. Timmons is still feeling tired today. She had been coughing quite a bit. She has no chest pain, is tolerating her diet. Temperature 97, pulse 68, respiratory rate 18, blood pressure 113/60, 95% on room air. Intake and output (I and O) notable for a positive fluid balance of 610, weight 86.5 kilograms. GENERAL: She is awake, appropriate and reactive, experiencing fits of coughing during the exam. HEENT: Moist mucous membranes. NECK: Supple. LUNGS: Breathing is symmetrical. I:E ratio is 1:4. Speaking in complete sentences. No accessory muscle use. HEART: Regular rate and rhythm, normal S1, S2. ABDOMEN: Soft, nontender. LABORATORY DATA: White cell count 9.4, hemoglobin 10.7, platelets 269. BUN 18, creatinine 0.85. Blood culture negative at 48 hours. Repeat chest x-ray shows no acute process. ASSESSMENT: This is a 66-year-old female with influenza B and chronic lymphocytic leukemia (CLL). PLAN: 1. The patient is being treated for influenza B and also has been started on azithromycin and ceftriaxone for suspected secondary bacterial bronchitis in the setting of immunocompromised related to her chronic lymphocytic leukemia. She is on Tamiflu and has received five doses so far. 2. The patient has hyperlipidemia. 3. The patient has hypothyroidism, continue Synthroid. 4. The patient has a history of migraines, did have a migraine headache last evening. 5. The patient is improving slowly, he is not from this area and does not have any support for when she goes home. She is in the area caring for her debilitated mother who is also hospitalized at this point. She will need a primary care provider at the time of discharge. I have discussed this case and issue with the hospital construction secretary in person.
[2016-12-06] MEDS: AZITHROMYCIN 250 MG TAB PO SCH (09:12)
[2016-12-06] MEDS: predniSONE 20 MG TAB PO SCH (09:12)
[2016-12-06] MEDS: ENOXAPARIN 40 MG/0.4 ML SYRINGE (J1650) SC SCH (09:12)
[2016-12-06] MEDS: HYDROXYCHLOROQUINE 200 MG TAB PO SCH ×2 (09:13→20:49)
[2016-12-06] MEDS: cefTRIAXone SOD 2 GM in D5W MINI-BAG PLUS 50 ML IV SCH (09:13)
[2016-12-06] MEDS: IMBRUVICA 140 MG PO SCH (09:13)
[2016-12-06] MEDS: OSELTAMIVIR PHOSPHATE 75 MG CAP (TAMIFLU) PO SCH ×2 (09:13→20:49)
[2016-12-06] MEDS: RALOXIFENE HCL (EVISTA) 60 MG TAB PO SCH (09:13)
[2016-12-06] MEDS: DOCUSATE SODIUM 100 MG CAP PO SCH ×2 (09:13→20:49)
[2016-12-06] MEDS: CALCIUM CARBONATE 500 MG CHEW U/D PO PRN ×2 (09:26→20:55)
--- NOTE | 2016-12-06 10:50 | IPNPDOC ---
Subjective Date Seen The patient was seen on 12/06/16. Subjective Chief Complaint/HPI The patient is a 66-year-old female admitted with a reason for visit of Community Acquired Pneumonia, Influenza. General: Denies: Chills, Fatigue, Malaise, Night Sweats, Normal Appetite, Other Symptoms, ROS Unobtainable Constitutional: Denies: Chills, Fatigue, Fever, Lethargy, Malaise, Night Sweats , Other, Weakness, Weight Loss Eyes: Denies: Conjunctivae inflammation, Eyelid inflammation, Other, Pain, Redness, Vision change ENT: Denies: Dysphagia, Ear Pain, Epistaxis, Head Aches, Other Symptoms, Post Nasal Drip, Sinus Congestion, Sore Throat Skin: Denies: Breakdown, Bruising, Dry, Itching, Jaundice, Lesions, Nail Changes, Other, Rash Pulmonary: Reports: Cough, Denies: Dyspnea, Other Symptoms, Pleuritic Chest Pain Cardiovascular: Denies: Chest Pain, Edema, Lt Headedness, Orthopnea, Other Symptoms, Palpitations, Paroxysmal Noc. Dyspnea Gastrointestinal: Reports: Nausea, Denies: Abdominal Pain, Constipation, Diarrhea, Hematochezia, Melena, Other Symptoms, Vomiting Objective Physical Examination General Exam: Positive: Alert, Cooperative, No Acute Distress Eye Exam: Positive: Conjunctiva & lids normal, EOMI, PERRLA, Negative: Sclera icteric ENT Exam: Positive: Atraumatic, Mucous membr. moist/pink Neck Exam: Positive: Supple Chest Exam: Positive: Clear to auscultation Heart Exam: Positive: Rate Normal, Regular Rhythm Abdomen Exam: Positive: Normal bowel sounds, Soft, Negative: Tenderness Extremity Exam: Negative: Edema Psych Exam: Positive: Oriented x 3 Assessment /Plan Problems (1) CAP (community acquired pneumonia) Status: Acute Discussed With: Patient Problem Specific Plan: Monitor Clinically Problem Text: Continue prednisone, azithromycin (day #4), tessalon perles, respiratory regimen. (2) Influenza Status: Acute Discussed With: Patient Problem Text: Continue tamiflu (day #4). Positive for influenza B. (3) CLL (chronic lymphocytic leukemia) Status: Chronic Discussed With: Patient Problem Text: Continue Imbruvica. Patient is planned for bone marrow transplant in [place] this year. (4) Hyperlipidemia Status: Chronic Problem Text: Continue simvastatin. (5) Hypothyroidism Status: Chronic Problem Text: Continue synthroid. (6) Migraine Status: Chronic Problem Text: Continue Maxalt-[employer] Plan/VTE VTE Prophylaxis Ordered?: Yes (Lovenox) Plan Diet: Continue Current Activity: Continue Current Anticipated Discharge: Home Disposition Anticipating discharge in 24-48 hours with prednisone taper, mucolytics, anti- emetics and anti-virals. VS, I&O, 24H, Fishbone Vital Signs/I&O Vital Signs Date Time Temp Pulse Resp B/P Pulse Ox O2 Delivery O2 Flow Rate FiO2 12/06/16 06:00 97.2 68 18 129/63 95 Room Air I&O- Last 24 Hours up to 6 AM 12/06/16 06:00 Intake Total 1620 ml Output Total 2150 ml Balance -530 ml Laboratory Data 24H LABS Laboratory Tests 2 12/06/16 05:39: Anion Gap 9, Blood Urea Nitrogen 17, Creatinine 0.80, Sodium Level 141, Potassium Level 3.9, Chloride Level 106, Carbon Dioxide Level 26, Calcium Level 8.9, Glomerular Filtration Rate > 60.0 CBC/BMP Laboratory Tests 12/06/16 05:39 Calcium Level 8.9, Red Blood Count 3.47 L, Mean Corpuscular Volume 92.3, Mean Corpuscular Hemoglobin 31.0, Mean Corpuscular Hemoglobin Concent 33.6, Red Cell Distribution Width 12.6 Microbiology Microbiology 12/03/16 Blood Culture - Preliminary, Resulted No Growth after 72 hours. All specime... 12/03/16 Blood Culture - Preliminary, Resulted No Growth after 72 hours. All specime... 12/03/16 Influenza Virus Type A Antigen - Final, Complete 12/03/16 Influenza Virus Type B Antigen - Final, Complete MARY PLASENCIA MD Dec 06, 2016 10:50
[2016-12-06] MEDS: ONDANSETRON 4 MG ORAL DISINTEGRATING TAB (S0181) SL PRN (12:15)
[2016-12-06 14:00] VITALS: BP 135/60
[2016-12-06] MEDS: SIMVASTATIN 10 MG TAB PO SCH (20:50)
[2016-12-06 22:00] VITALS: BP 115/66
[2016-12-06] MEDS: BACLOFEN 10 MG TAB PO SCH (23:06)
[2016-12-06] MEDS: zolPIDEM TARTRATE 5 MG TAB PO SCH (23:06)
[2016-12-07] MEDS ORDERED: NORCO, ANEXSIA 5/325MG TABLET (HYDROcodone/ACETAMINOPHEN) PO ONE
[2016-12-07] MEDS: LEVOTHYROXINE 0.125 MG TAB (125 MCG) PO SCH (05:38)
[2016-12-07 06:00] VITALS: BP 100/65
[2016-12-07 06:28] LABS: MEAN CORPUSCULAR HGB CONC 33.3 g/dl (32.0-36.5); MEAN CORPUSCULAR VOLUME 93.1 fl (80.0-96.0); RED CELL DISTRIBUTION WIDTH 12.6 % (11.5-14.5); WHITE BLOOD COUNT 9.3 K/mm3 (4.0-10.0)
[2016-12-07 06:39] LABS: ANION GAP 8 MEQ/L (8-16); BLOOD UREA NITROGEN 18 MG/DL (7-18); CALCIUM LEVEL 9.2 MG/DL (8.8-10.2); CARBON DIOXIDE LEVEL 27 MEQ/L (21-32); CHLORIDE LEVEL 105 MEQ/L (98-107); CREATININE FOR GFR 0.76 MG/DL (0.55-1.02); GLOMERULAR FILTRATION RATE > 60.0 (>45); GLUCOSE, FASTING 82 MG/DL (80-110); POTASSIUM SERUM 3.8 MEQ/L (3.5-5.1); SODIUM LEVEL 140 MEQ/L (136-145)
[2016-12-07] MEDS: IPRATROPIUM 0.5MG/ALBUTEROL 2.5MG INH SOL UD 3ML (DUONEB)(J7620) NEB SCH (07:41)
[2016-12-07] MEDS: ENOXAPARIN 40 MG/0.4 ML SYRINGE (J1650) SC SCH (09:00)
[2016-12-07] MEDS ORDERED: ONDA4TAB6 SL (09:48)
[2016-12-07] MEDS ORDERED: OSEL75CA2 PO (09:48)
[2016-12-07] MEDS ORDERED: CEFD1CAP8 PO (09:48)
[2016-12-07] MEDS ORDERED: PRED10PA PO (09:53)
[2016-12-07] MEDS: cefTRIAXone SOD 2 GM in D5W MINI-BAG PLUS 50 ML IV SCH (10:50)
[2016-12-07] MEDS: OSELTAMIVIR PHOSPHATE 75 MG CAP (TAMIFLU) PO SCH (10:51)
[2016-12-07] MEDS: AZITHROMYCIN 250 MG TAB PO SCH (10:51)
[2016-12-07] MEDS: IMBRUVICA 140 MG PO SCH (10:51)
[2016-12-07] MEDS: predniSONE 20 MG TAB PO SCH (10:51)
[2016-12-07] MEDS: DOCUSATE SODIUM 100 MG CAP PO SCH (10:51)
[2016-12-07] MEDS: RALOXIFENE HCL (EVISTA) 60 MG TAB PO SCH (10:51)
[2016-12-07] MEDS: HYDROXYCHLOROQUINE 200 MG TAB PO SCH (11:03)
[2016-12-07] MEDS: CALCIUM CARBONATE 500 MG CHEW U/D PO PRN (11:03)
--- NOTE | 2016-12-07 12:19 | DS.PDOC ---
Discharge Summary General Date of Admission Dec 05, 2016 at 15:27 Date of Discharge Dec 07, 2016 Discharge Summary PROCEDURES PERFORMED DURING STAY: [None.] COMPLICATIONS/CHIEF COMPLAINT: Community Acquired Pneumonia, Influenza ADMISSION DIAGNOSES: 1. Influenza 2. Secondary bacterial bronchitis 3. CLL 4. Hyperlipidemia 5. Hypothyroidism 6. Migraines DISCHARGE DIAGNOSES: 1. Influenza 2. Secondary bacterial bronchitis 3. CLL 4. Hyperlipidemia 5. Hypothyroidism 6. Migraines HISTORY OF PRESENT ILLNESS: Patient is a 66-year old female presenting for several days of worsening cough, shortness of breath and subjective fevers. HOSPITAL COURSE: Patient was admitted for influenza, and suspected secondary bacterial bronchitis. She was started on tamiflu and anti-microbials. Her general lethargy and myalgias improved slowly during her hospital stay. She remained good oxygen saturations on room air. She was ultimately discharged in stable condition with instructions as indicated. DISCHARGE MEDICATIONS: Please see below. ALLERGIES: Please see below. PHYSICAL EXAMINATION ON DISCHARGE: VITAL SIGNS: Please see below. GENERAL: NAD HEENT: NC/AT, EOMI, PERRL NECK: supple CARDIOVASCULAR EXAMINATION: +S1S2, RRR RESPIRATORY EXAMINATION: CTA B/L ABDOMINAL EXAMINATION: soft, NT, +BS EXTREMITIES: no edema SKIN: no rashes NEUROLOGICAL EXAMINATION: no gross focal deficits PSYCHIATRIC EXAMINATION: AAOx3 LABORATORY DATA: Please see below. VTE Prophylaxis ordered?: yes DISCHARGE CONDITION: Stable DISPOSITION: Discharged home ACTIVITY: As tolerated DIET: Low fat low cholesterol DISCHARGE PLAN AND INSTRUCTIONS: 1. Follow up with PCP as scheduled. 2. Follow up with oncologist in [place] as scheduled. 3. Take medications as directed. TIME SPENT ON DISCHARGE: Greater than 30 minutes. Vital Signs/I&Os Vital Signs Date Time Temp Pulse Resp B/P Pulse Ox O2 Delivery O2 Flow Rate FiO2 12/07/16 06:00 97.9 68 15 100/65 94 Room Air I&O- Last 24 Hours up to 6 AM 12/07/16 06:00 Intake Total 1440 ml Output Total 1625 ml Balance -185 ml Laboratory Data Labs 24H Laboratory Tests 2 12/07/16 06:14: Anion Gap 8, Blood Urea Nitrogen 18, Creatinine 0.76, Sodium Level 140, Potassium Level 3.8, Chloride Level 105, Carbon Dioxide Level 27, Calcium Level 9.2, Glomerular Filtration Rate > 60.0 CBC/BMP Laboratory Tests 12/07/16 06:14 Calcium Level 9.2, Red Blood Count 3.48 L, Mean Corpuscular Volume 93.1, Mean Corpuscular Hemoglobin 31.0, Mean Corpuscular Hemoglobin Concent 33.3, Red Cell Distribution Width 12.6 Microbiology Microbiology 12/03/16 Blood Culture - Preliminary, Resulted No Growth after 72 hours. All specime... 12/03/16 Blood Culture - Preliminary, Resulted No Growth after 72 hours. All specime... 12/03/16 Influenza Virus Type A Antigen - Final, Complete 12/03/16 Influenza Virus Type B Antigen - Final, Complete Medications Scheduled Acyclovir (Acyclovir) 800 Mg Tab 800 MG PO BID Baclofen (Baclofen) 10 Mg Tab 10 MG PO QHS Base (Imbruvica) 140 Mg Cap 420 MG PO DAILY Cefdinir (Cefdinir) 300 Mg Cap 300 MG PO BID Guaifenesin (Mucinex) 600 Mg Tab 600 MG PO BID Hydroxychloroquine Sulfate (Hydroxychloroquine Sulfat) 200 Mg Tab 200 MG PO BID Levothyroxine Sodium (Synthroid) 125 Mcg Tab 125 MCG PO DAILY Oseltamivir Phosphate (Oseltamivir Phosphate) 75 Mg Cap 75 MG PO 1T Take 1 tablet by mouth at 6pm, 12/07/16. Prednisone (Prednisone) 10 Mg Arjun 10 MG PO ASDIRECTED Raloxifene Hydrochloride (Evista) 60 Mg Tab 60 MG PO DAILY Simvastatin (Simvastatin) 10 Mg Tab 10 MG PO QHS Zolpidem Tartrate (Zolpidem Tartrate) 5 Mg Tab 5 MG PO QHS Scheduled PRN Acetaminophen/Hydrocodone (Hydrocodone/Acetaminophen 5-325 mg) 1 Tab Tab 1 TAB PO Q6H PRN PRN PAIN MDD 4 Albuterol Sulfate (Proair Hfa) 108 Mcg/Act Aer 2 PUFF INH Q4H PRN PRN SOB/ WHEEZING Ondansetron (Ondansetron Odt) 4 Mg Tab 4 MG SL Q6HP PRN PRN NAUSEA OR VOMITING Rizatriptan Benzoate (Maxalt) 10 Mg Tab 10 MG PO DAILY PRN PRN MIGRAINE Allergies Coded Allergies: Sulfa Antibiotics (Unverified Allergy, Unknown, Syncope, 12/03/16) MARY PLASENCIA MD Dec 07, 2016 12:19
== END 2016-12-07 13:23 | disposition home or self-care (01) | DRG 194 ==
LOC: M ED 22:59 → M ED INP 12-03 01:08 → M MSPAV 12-03 02:40 → OBSVTOIN 12-05 15:27
PROVIDERS: ADMIT Hospitalist; ATTEND Internal Medicine
DX: J10.00 Influenza due to other identified influenza virus with unspecified type of pneumonia (principal); C91.10 Chronic lymphocytic leukemia of B-cell type not having achieved remission; C85.90 Non-Hodgkin lymphoma, unspecified, unspecified site; E78.5 Hyperlipidemia, unspecified; J18.9 Pneumonia, unspecified organism; J45.909 Unspecified asthma, uncomplicated; J20.9 Acute bronchitis, unspecified; E03.9 Hypothyroidism, unspecified; G43.709 Chronic migraine without aura, not intractable, without status migrainosus; Z90.710 Acquired absence of both cervix and uterus; Z88.2 Allergy status to sulfonamides; Z79.899 Other long term (current) drug therapy

== ENCOUNTER → 2016-12-20 | Outpatient (CLI) | payer MEDICARE, OTHER ==
[~2016-12-20] MED LIST: ACYC800T PO; BACL10TA2 PO; CEFD1CAP8 PO; EVIS1TAB PO; HYDR-3713 PO; HYDR200T3 PO; IMBR1CAP PO; MAXA10TA14 PO; MUCI600T34 PO; ONDA4TAB6 SL; OSEL75CA2 PO; PRED10PA PO; PROA1AER INH; SIMV10TA2 PO; SYNT125T PO; ZOLP5TAB PO
[2016-12-20 17:44] LABS: BASO % 0.4 % (0.0-1.0); EOS # 0.1 K/mm3 (0.0-0.50); EOS % 0.6 % (0.0-3.0); LARGE UNSTAINED CELL # 0.6 K/mm3 (0.0-0.4); LYMPH # 6.4 K/mm3 (1.5-4.5); LYMPH % 59.9 % (24.0-44.0); MEAN CORPUSCULAR HEMOGLOBIN 30.7 pg (27.0-33.0); MEAN CORPUSCULAR HGB CONC 31.7 g/dl (32.0-36.5); MEAN CORPUSCULAR VOLUME 96.9 fl (80.0-96.0); MONO # 0.3 K/mm3 (0.0-0.8); MONO % 3.1 % (0.0-5.0); NEUTROPHILS # 2.9 K/mm3 (1.8-7.7); PLATELET COUNT, AUTOMATED 260 k/mm3 (150-450); RED CELL DISTRIBUTION WIDTH 12.8 % (11.5-14.5)
[2016-12-20 17:50] LABS: WHITE BLOOD COUNT 9.6 K/mm3 (4.0-10.0)
[2016-12-20 18:14] LABS: ALBUMIN 3.7 GM/DL (3.2-5.2); ALKALINE PHOSPHATASE 46 U/L (45-117); ALT/SGPT 24 U/L (12-78); ANION GAP 6 MEQ/L (8-16); AST/SGOT 17 U/L (15-37); BILIRUBIN,TOTAL 0.4 MG/DL (0.2-1.0); BLOOD UREA NITROGEN 13 MG/DL (7-18); CARBON DIOXIDE LEVEL 29 MEQ/L (21-32); CHLORIDE LEVEL 107 MEQ/L (98-107); CREATININE FOR GFR 0.84 MG/DL (0.55-1.02); GLOMERULAR FILTRATION RATE > 60.0 (>45); GLUCOSE, FASTING 89 MG/DL (80-110); POTASSIUM SERUM 4.7 MEQ/L (3.5-5.1); SODIUM LEVEL 142 MEQ/L (136-145); TOTAL PROTEIN 7.4 GM/DL (6.4-8.2)
== END ==
LOC: M LRY 11:33
PROVIDERS: ATTEND Internal Medicine Hematology & Oncology
DX: C91.10 Chronic lymphocytic leukemia of B-cell type not having achieved remission (principal)

== ENCOUNTER → 2016-12-20 | Outpatient (CLI) | payer MEDICARE, OTHER ==
[2016-12-20 17:38] LABS: ALBUMIN 3.7 GM/DL (3.2-5.2); ALBUMIN/GLOBULIN RATIO 0.97 (1.00-1.93); ALKALINE PHOSPHATASE 49 U/L (45-117); ALT/SGPT 23 U/L (12-78); ANION GAP 7 MEQ/L (8-16); AST/SGOT 18 U/L (15-37); BILIRUBIN,TOTAL 0.4 MG/DL (0.2-1.0); BLOOD UREA NITROGEN 14 MG/DL (7-18); CALCIUM LEVEL 8.7 MG/DL (8.8-10.2); CARBON DIOXIDE LEVEL 29 MEQ/L (21-32); CHLORIDE LEVEL 107 MEQ/L (98-107); CREATININE FOR GFR 0.85 MG/DL (0.55-1.02); FREE T4 1.37 NG/DL (0.76-1.46); GLOMERULAR FILTRATION RATE > 60.0 (>45); GLUCOSE, FASTING 87 MG/DL (80-110); POTASSIUM SERUM 4.7 MEQ/L (3.5-5.1); SODIUM LEVEL 143 MEQ/L (136-145); TOTAL PROTEIN 7.5 GM/DL (6.4-8.2)
[2016-12-20 17:49] LABS: MEAN CORPUSCULAR HEMOGLOBIN 29.8 pg (27.0-33.0); MEAN CORPUSCULAR HGB CONC 31.5 g/dl (32.0-36.5); MEAN CORPUSCULAR VOLUME 94.8 fl (80.0-96.0); RED CELL DISTRIBUTION WIDTH 12.7 % (11.5-14.5)
== END ==
LOC: M LRY 11:39
DX: C91.10 Chronic lymphocytic leukemia of B-cell type not having achieved remission (principal); E03.9 Hypothyroidism, unspecified; E78.5 Hyperlipidemia, unspecified